=== PATIENT | male | born 2000 | race Caucasian/White ===

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

== ENCOUNTER → 2018-09-13 | Outpatient (CLI) | payer OTHER ==
[~2018-09-13] MED LIST: CONRAY-43 43% 50ML VIAL (Q9960) As Ordered ONE; PROHANCE 279.3MG/ML 5ML VIAL (A9576) As Ordered ONE; ZOFR4TAB14 PO
--- NOTE | 2018-09-13 10:37 | REP ---
MR ARTHROGRAM RIGHT SHOULDER: TECHNIQUE: Axial T2 fat sat, gradient echo, sagittal oblique T2 fat sat, coronal oblique T1, T2 fat sat. There is mild ill-defined high signal involving the supraspinatus tendon compatible with mild tendinopathy/tendonitis. No rotator cuff tendon tear is seen. Acromioclavicular joint is well aligned with a type 1 acromion. Biceps tendon is within the bicipital groove without significant tenosynovitis. There is no Hill Sach's deformity. The deltoid muscle demonstrates no abnormal signal. There is Slap tear noted extending into the biceps labral complex. There is also a small tear of the inferior labrum. Subchondral cystic changes are seen superolateral humeral head. There is a normal amount of joint fluid. No paralabral cyst is seen. IMPRESSION: Mild supraspinatus tendinopathy. There is a Slap tear extending into the biceps labral complex. There is small inferior labral tear. Subchondral cystic change superolateral humeral head. Electronically Signed by Ac Yoon MD 09/13/2018 04:24 P
--- NOTE | 2018-09-13 17:46 | REP ---
Reason For Patient Visit: Right shoulder pain Reason For Exam/Comment: Right shoulder pain Procedure: Right shoulder arthrogram The procedure was performed by SUSAN Valentine, under the direct supervision of Dr. Yoon. The benefits and risks including but not limited to pain, infection, bleeding and anaphylaxis were explained to the patient and informed consent was obtained both verbally and written. Directly prior to the start of the procedure, a formal timeout was completed in the procedure room. Technique: The right glenohumeral joint was localized using fluoroscopic guidance. The skin was prepped and draped in the usual sterile fashion. 5 mL of 1% lidocaine was used as a local anesthetic. Using fluoroscopic guidance a 22-gauge spinal needle was inserted and advanced to the right glenohumeral joint space . 1 mL of Conray 43 was injected to verify needle placement. A 12 mL solution containing 20 ml of sterile saline and a 0.15 ml of ProHance was injected into the joint. The needle was removed and the patient was taken MRI for post procedural imaging. The patient tolerated the procedure well and there were no immediate complications. 0.3 minutes of fluoroscopy time was utilized for this procedure. Reviewed by SUSAN Craig 09/13/2018 01:22 P Electronically Signed by Ac Yoon MD 09/13/2018 05:38 P
== END ==
LOC: M RADPRO 06:27
PROVIDERS: ATTEND Physician Assistant
DX: S43.431A Superior glenoid labrum lesion of right shoulder, initial encounter (principal); X50.0XXA Overexertion from strenuous movement or load, initial encounter; Y92.84 Military training ground as the place of occurrence of the external cause; Y99.1 Military activity
CPT/HCPCS: 23350; 73223; 77002; A9576; Q9960

== ENCOUNTER 2019-03-17 06:48 | Day surgery (SDC) | payer OTHER ==
[~2019-03-17] VITALS: Ht 177.8 cm; Wt 122.0 kg
[~2019-03-17 06:48] MED LIST changes: -CONRAY-43 43% 50ML VIAL (Q9960) As Ordered ONE; +IBUP200C25 PO; +LR 1,000 ML IV ONE; -PROHANCE 279.3MG/ML 5ML VIAL (A9576) As Ordered ONE; +ceFAZolin SOD 2 GM in IV 1 EA IV ONE
[2019-03-17] MEDS ORDERED: EPINEPHrine INJ 1 MG/ML 1ML AMP ONE (06:49)
[2019-03-17] MEDS ORDERED: ROPIvacaine 0.5% 30 ML INJECTION (J2795 PER 1MG) ONE (06:49)
[2019-03-17] MEDS ORDERED: dexameTHASONE 10 MG/1 ML VIAL PRES.FREE (J1100) ONE (06:49)
[2019-03-17] MEDS ORDERED: LIDOCAINE 1% MDV 20ML VIAL As Ordered ONE (07:43)
[2019-03-17] MEDS ORDERED: EPINEPHrine INJ 1 MG/ML 1ML AMP As Ordered ONE (07:44)
[2019-03-17] MEDS ORDERED: MIDAZOLAM INJ 2 MG/2 ML VIAL (J2250) As Ordered ONE ×2 (07:59→08:11)
[2019-03-17] MEDS ORDERED: fentaNYL 100 MCG/2 ML INJECTION (J3010) As Ordered ONE ×3 (07:59→11:55)
[2019-03-17] MEDS ORDERED: LIDOCAINE 2% INJ 100 MG/5 ML SDV (FOR ANES.) As Ordered ONE (08:12)
[2019-03-17] MEDS ORDERED: ONDANSETRON 4MG/2ML VIAL (J2405) As Ordered ONE (08:12)
[2019-03-17] MEDS ORDERED: dexameTHASONE 4 MG/ML 1ML VIAL (J1100) As Ordered ONE (08:12)
[2019-03-17] MEDS ORDERED: ROCURONIUM BROMIDE 50 MG/5 ML VIAL As Ordered ONE ×2 (08:12→09:28)
[2019-03-17] MEDS ORDERED: PROPOFOL 200 MG/20 ML VIAL As Ordered ONE ×2 (08:12→09:14)
[2019-03-17] MEDS ORDERED: LACRILUBE (AKWA TEARS) OPHTH OINT 3.5 GM As Ordered ONE (08:16)
[2019-03-17] MEDS ORDERED: MIDAZOLAM INJ 2 MG/2 ML VIAL (J2250) IV ONE (09:00)
[2019-03-17] MEDS ORDERED: fentaNYL 100 MCG/2 ML INJECTION (J3010) IV SCH (09:00)
[2019-03-17] MEDS ORDERED: ACETAMINOPHEN 1000MG 100ML IV BTL (OFIRMEV) (J0131 PER 10MG) As Ordered ONE (09:23)
[2019-03-17] MEDS ORDERED: SUGAMMADEX SODIUM 500 MG/5 ML VIAL (BRIDION) As Ordered ONE (09:24)
[2019-03-17] MEDS ORDERED: ePHEDrine SULFATE 25 MG/5 ML(5MG/ML) SYRINGE As Ordered ONE (10:28)
[2019-03-17] MEDS ORDERED: KETAMINE HCL 200 MG/20 ML VIAL As Ordered ONE (10:44)
[2019-03-17] MEDS ORDERED: ONDANSETRON 4MG/2ML VIAL (J2405) IV PRN (11:45)
[2019-03-17] MEDS ORDERED: LR 1,000 ML IV SCH ×2 (11:45)
[2019-03-17] MEDS: fentaNYL 100 MCG/2 ML INJECTION (J3010) IV PRN ×4 (11:57→12:12)
[2019-03-17] MEDS ORDERED: oxyCODONE 5MG TAB As Ordered ONE (12:12)
[2019-03-17] MEDS ORDERED: oxyCODONE 5MG TAB PO PRN (12:15)
[2019-03-17 12:35] VITALS: BP 134/78
--- NOTE | 2019-03-17 13:18 | RO ---
DATE OF PROCEDURE: 03/17/2019 PREOPERATIVE DIAGNOSIS: 1. Right shoulder labral tear. POSTOPERATIVE DIAGNOSES: 1. Right shoulder superior labral tear. 2. Right shoulder inferior labral tear. PROCEDURE: 1. Right shoulder arthroscopic anterior and posterior labral repair. 2. Right shoulder arthroscopic superior labral debridement. SURGEON: Singh Henry MD GEAR SHAVER SET UP OPERATOR: Radha Joyner MD ANESTHESIA: General with preoperative nerve block. IV FLUIDS: Lactated Ringer's. ESTIMATED BLOOD LOSS: 5 mL. IMPLANTS: Arthrex 3 mm SutureTak times one and Arthrex 2.9 mm PushLock anchor times three with LabralTape. CLOSURE: Nylon. PROCEDURE: Patient identified in preoperative holding area. The right shoulder marked by myself. He had an interscalene nerve block by anesthesia. He was brought to the operating room, placed supine on a well-padded OR table. General anesthesia induced. He received appropriate IV antibiotics within 1 hour of incision. Exam under anesthesia revealed 180 degrees forward flexion, 90 of external rotation, grade 2 posterior load and shift, grade 1 anterior load and shift. He was placed into the left side down lateral decubitus position with an axillary roll and all bony prominences were well padded. Bilateral Venodyne boots for deep vein thrombosis (DVT) prophylaxis. The right arm was placed into the Arthrex STaR Sleeve lateral decubitus traction mendoza with 10 pounds of traction. The right shoulder was then prepped and draped in normal sterile fashion with Chloraprep. Prior to incision, a time out was performed per hospital protocol. Radha Joyner was present for the entire procedure and participated all essential portions of the procedure. This included patient positioning and draping, holding the arthroscope, holding traction and manipulating the arm to assist with the labral repair, retrieving sutures, passing sutures through anchors and assisting with the wound closure and applying the sling and dressing. A standard posterior viewing portal was made with an 11 blade. 30 degree arthroscope was introduced into the joint. Diagnostic arthroscopy was carried out revealing tearing of the superior labrum and a modified [place] complex. The humeral head was subluxated inferiorly and perched on the inferior aspect of the glenoid. There was tearing of the inferior labrum from the 4:30 to 07:30 position. Further tearing up the posterior aspect of the glenoid. An anterior working portal was established through the rotator interval just off the subscap and on probing of the superior labrum the anchor was felt to be stable and that there was a redundant free edge tear of the superior labrum. There was intact articular cartilage over the superior aspect of the glenoid not felt to be a type 2 SLAP tear. The long head of the biceps was probed, was brought into the joint and there was no tearing. The shaver was used to perform debridement of the SLAP tear. Inferiorly I was able to place a switching stick between the labrum and glenoid consistent with a displaced tear. An accessory superolateral portal was then established high in the rotator interval just anterior to the supraspinatus. Through two portals, I used radiofrequency cautery, hooked cautery to develop the plane between the glenoid and labrum and then labral elevators were used to subperiosteally dissect the labrum capsule off the anterior glenoid neck and to create a bleeding surface. The shaver was used to remove some frayed labral tissue. I then drilled and placed an Arthrex 3 mm SutureTak at the 5 o'clock position. The TigerTape was shuttled through the anterior band of the inferior glenohumeral ligament with a SutureLasso and then my optometric assistant applied a posterior lever push to the proximal humerus and I tied arthroscopic knots using alternating half hitches, which nicely created an inferior bumper. Sutures were cut. Then used the Lasso to shuttle LabralTape through labrum and capsule and then I drilled for a knotless PushLock anchor and the suture was tensioned, advanced by hand and then malleted per routine and that was placed the 4 o'clock position. Next, the arthroscope was placed into the anterior superior portal and an accessory posterior lateral portal created with the percutaneous labral repair kit. A third cannula was then placed. The nitinol wire actually broke in the joint and this was successfully removed with a pituitary rongeur in its entirety. No retained metal. The hooked cautery was then used to develop the plane between the posterior labrum and articular cartilage. I should mention there was tearing at the labral chondral junction, again from the 6 o'clock position up the back of the glenoid but most pronounced from the 6 o'clock to 8 o'clock position. Labral elevators were then used to subperiosteally dissect and then a new SutureLasso used to shuttle LabralTape around the 6:30 position. That was placed through another PushLock anchor. which was placed at the 6:30 position. Those same steps were repeated for another PushLock with LabralTape at the 7:30 position. This nicely restored the posterior inferior bumper. No additional anchors were necessary. The shoulder was irrigated and drained. Humeral head was centrally located on the glenoid. Portals were then closed with nylon suture. Bulky sterile dressing was applied. He was carefully placed into his ARC 2 sling in the gunslinger position. He was extubated, transferred to postanesthesia care unit (PACU) in stable condition.
== END 2019-03-17 13:50 | disposition home or self-care (01) ==
LOC: M SDC 06:48
PROVIDERS: ATTEND Orthopaedic Surgery
DX: S43.431A Superior glenoid labrum lesion of right shoulder, initial encounter (principal); X58.XXXA Exposure to other specified factors, initial encounter; Y92.89 Other specified places as the place of occurrence of the external cause; Y93.9 Activity, unspecified; Y99.9 Unspecified external cause status
CPT/HCPCS: 29807; 64415; C1713; J0131; J0690; J1100; J2250; J2405; J2795; J3010